=== PATIENT | male | born 1960 | race Caucasian/White ===

== ENCOUNTER 2016-12-29 16:28 | Inpatient (IN) | payer OTHER ==
[~2016-12-29] VITALS: Ht 180.3 cm; Wt 73.0 kg
[2016-12-29] MEDS ORDERED: PROPOFOL 1000 MG/100 ML INJ 100 ML ONE (16:38)
[2016-12-29 16:53] LABS: AUTOMATED NEUTROPHIL # 6.1 TH/MM3 (1.8-7.7); BASOPHIL % 0.2 % (0.0-2.0); EOSINOPHIL % 0.5 % (0.0-4.0); HEMATOCRIT 37.8 % (39.0-51.0); LYMPH % 28.9 % (9.0-44.0); LYMPHOCYTE # 2.8 TH/MM3 (1.0-4.8); MEAN CELL VOLUME 94.3 FL (80.0-100.0); MEAN CORPUSCULAR HEMOGLOBIN 31.3 PG (27.0-34.0); MEAN CORPUSCULAR HGB CONC 33.2 % (32.0-36.0); NEUT % 63.4 % (16.0-70.0); PLATELET COUNT 157 TH/MM3 (150-450); RED BLOOD COUNT 4.01 MIL/MM3 (4.50-5.90); WHITE BLOOD COUNT 9.6 TH/MM3 (4.0-11.0)
[2016-12-29 16:54] LABS: HEMO FLAGS AUTO DIFF
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
[2016-12-29 16:57] LABS: I-STAT POTASSIUM 3.6 MMOL/L (3.5-4.9)
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
[2016-12-29] MEDS ORDERED: NALOXONE HCL 0.4 MG/ML AMP IV PRN (17:00)
[2016-12-29] MEDS ORDERED: SODIUM CHLORIDE 0.9% FLUSH 10 ML FLUSH IV FLUSH PRN (17:00)
[2016-12-29] MEDS ORDERED: Post-op Orders (for Pharmacy) MISC XX ONE (17:00)
[2016-12-29] MEDS ORDERED: ONDANSETRON HCL 4 MG/2 ML VIAL IV PRN (17:00)
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
[2016-12-29 17:09] LABS: INTERNATIONAL NORMALIZED RATIO 1.1 RATIO; PROTHROMBIN TIME - PATIENT 11.8 SEC (9.8-11.6)
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
[2016-12-29 17:29] LABS: BANDS 5 % (0-6); METAMYELOCYTES 2 % (0-1); PLATELET ESTIMATE SMEAR NORMAL (NORMAL); PLATELET MORPHOLOGY NORMAL (NORMAL); POLYS (SEG NEUTROPHILS) 54 % (16-70); PROMYELOCYTES 1 % (0-0); SCAN/DIFF FINAL DIFF MANUAL; WBC DIFF SAMPLE 100
[2016-12-29] MEDS ORDERED: IOHEXOL 350 MG/ML 10 ML VIAL (for RAD DIAG) IV ONE ×2 (17:31→17:32)
[2016-12-29 17:38] VITALS: O2SAT 100
[2016-12-29 17:40] VITALS: O2SAT 100
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
[2016-12-29 18:00] VITALS: BP 103/59; PULSE 87; RESP 14; TEMP 95.7; O2SAT 100
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
[2016-12-29] MEDS: SODIUM CHLOR 0.9% 1000 ML INJ 1,000 ML IV SCH (18:34)
[2016-12-29] MEDS: PANTOPRAZOLE SODIUM 40 MG VIAL IV SCH (18:36)
[2016-12-29] MEDS: PROPOFOL 1000 MG/100 ML INJ 100 ML IV SCH ×2 (18:37→20:34)
[2016-12-29] MEDS: fentaNYL DRIP 250 ML IV SCH (18:55)
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
[2016-12-29 20:00] VITALS: BP 102/63; PULSE 90; RESP 14; TEMP 97.5; O2SAT 100
[2016-12-29] MEDS: CHLORHEXIDINE 0.12% (ORAL KIT) 15 ML CUP MT SCH (20:00)
[2016-12-29] MEDS: SODIUM CHLORIDE 0.9% FLUSH 10 ML FLUSH IV FLUSH SCH (21:00)
[2016-12-29 21:46] VITALS: O2SAT 95
[2016-12-29 22:00] VITALS: PULSE 90
[2016-12-30] VITALS (17 sets, daily range): BP systolic 88–131; BP diastolic 50–74; PULSE 86–101; RESP 14; TEMP 99–100; O2SAT 100
[2016-12-30] MEDS: SODIUM CHLOR 0.9% 1000 ML INJ 1,000 ML IV SCH ×3 (02:48→18:13)
[2016-12-30 04:08] LABS: AUTOMATED NEUTROPHIL # 8.9 TH/MM3 (1.8-7.7); BASOPHIL % 0.3 % (0.0-2.0); EOSINOPHIL % 0.2 % (0.0-4.0); HEMATOCRIT 36.4 % (39.0-51.0); HEMO FLAGS DIFF FINAL; LYMPH % 6.4 % (9.0-44.0); LYMPHOCYTE # 0.7 TH/MM3 (1.0-4.8); MEAN CELL VOLUME 93.5 FL (80.0-100.0); MEAN CORPUSCULAR HEMOGLOBIN 31.7 PG (27.0-34.0); MEAN CORPUSCULAR HGB CONC 33.9 % (32.0-36.0); MONO % 7.2 % (0.0-8.0); NEUT % 85.9 % (16.0-70.0); PLATELET COUNT 105 TH/MM3 (150-450); RED BLOOD COUNT 3.89 MIL/MM3 (4.50-5.90); RED CELL DISTRIBUTION WIDTH 13.3 % (11.6-17.2); WHITE BLOOD COUNT 10.3 TH/MM3 (4.0-11.0)
[2016-12-30 04:24] LABS: BICARBONATE 26.6 MEQ/L (21.0-32.0)
[2016-12-30 04:26] LABS: INDIRECT BILIRUBIN 0.4 MG/DL (0.0-0.8); TOTAL BILIRUBIN ADULT 0.5 MG/DL (0.2-1.0)
[2016-12-30] MEDS: CHLORHEXIDINE 0.12% (ORAL KIT) 15 ML CUP MT SCH ×2 (08:00→20:15)
[2016-12-30] MEDS: SODIUM CHLORIDE 0.9% FLUSH 10 ML FLUSH IV FLUSH SCH ×2 (09:00→20:15)
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
[2016-12-30] MEDS: ENOXAPARIN SODIUM 40 MG/0.4 ML SYRINGE SQ SCH (10:29)
[2016-12-30] MEDS: BACITRACIN TOP OINT 15 GM TUBE TOP SCH ×2 (10:29→20:15)
[2016-12-30] MEDS: fentaNYL DRIP 250 ML IV SCH (18:13)
[2016-12-30] MEDS: PANTOPRAZOLE SODIUM 40 MG VIAL IV SCH (18:13)
[2016-12-31] VITALS (16 sets, daily range): BP systolic 111–155; BP diastolic 59–90; PULSE 86–126; RESP 14–22; TEMP 98.5–99.9; O2SAT 94–100
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
[2016-12-31] MEDS: SODIUM CHLOR 0.9% 1000 ML INJ 1,000 ML IV SCH ×2 (05:21→16:50)
[2016-12-31] MEDS: SODIUM CHLORIDE 0.9% FLUSH 10 ML FLUSH IV FLUSH SCH ×2 (08:43→20:20)
[2016-12-31] MEDS: CHLORHEXIDINE 0.12% (ORAL KIT) 15 ML CUP MT SCH (08:43)
[2016-12-31] MEDS: BACITRACIN TOP OINT 15 GM TUBE TOP SCH ×2 (08:44→20:20)
[2016-12-31] MEDS: ENOXAPARIN SODIUM 40 MG/0.4 ML SYRINGE SQ SCH (10:00)
[2016-12-31] MEDS ORDERED: MORPHINE SULFATE 4 MG/ML INJ IV PUSH PRN (13:15)
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
--- NOTE | 2016-12-31 13:35 | PD.ORT.PN ---
Subjective Subjective Remarks Patient resting in bed with eyes open after being extubated this morning. Patient has appropriate verbal responses to questioning. Patient c/o mild pain to the left UE and right hip. Patient denies tingling or numbness, fevers, chills, nausea, SOB, or CP Objective Vitals Vital Signs Date Time Temp Pulse Resp B/P Pulse Ox O2 Delivery O2 Flow Rate FiO2 12/31/16 12:00 120 12/31/16 12:00 99.3 120 22 154/70 100 12/31/16 10:00 126 12/31/16 09:15 100 Nasal Cannula 2 12/31/16 09:00 30 12/31/16 08:00 98.5 108 20 155/88 100 12/31/16 08:00 108 12/31/16 08:00 30 12/31/16 07:00 100 Mechanical Ventilator 30 12/31/16 06:00 110 12/31/16 04:35 100 30 12/31/16 04:20 100 100 12/31/16 04:00 30 12/31/16 04:00 86 12/31/16 04:00 98.8 86 14 114/82 100 12/31/16 02:00 88 12/31/16 01:15 100 30 12/31/16 00:00 99.5 90 14 111/59 100 12/31/16 00:00 30 12/31/16 00:00 90 12/30/16 22:00 93 12/30/16 20:09 100 30 12/30/16 20:00 30 12/30/16 20:00 99.5 101 14 131/74 100 12/30/16 20:00 101 12/30/16 19:00 100 Mechanical Ventilator 30 12/30/16 16:00 92 12/30/16 16:00 99.3 92 104/65 100 12/30/16 16:00 30 12/30/16 15:39 100 30 12/30/16 14:00 86 I/O 12/30/16 12/30/16 12/30/16 12/31/16 12/31/16 12/31/16 07:00 15:00 23:00 07:00 15:00 23:00 Intake Total 0 ml 1053 ml 725 ml 993 ml Output Total 400 ml 400 ml 325 ml Balance 0 ml 653 ml 325 ml 668 ml Intake Oral 0 ml IV Total 1053 ml 725 ml 993 ml Output Urine Total 400 ml 325 ml 300 ml Gastric Drainage Total 0 ml 75 ml 25 ml # Bowel Movements 0 0 0 Result Diagram: 12/30/16 0348 12/30/16 0348 Imaging Last [address] 12/31/16 0000 Signed Impressions: Service Date/Time: Saturday, December 31, 2016 04:27 - CONCLUSION: 1. Suboptimal study. The upper images demonstrate severe motion artifact and these portions of the brain are not evaluated. 2. No visualized hemorrhage or mass effect. 3. Stable left frontal bone fracture. Siva Germain MD Objective Remarks Last [address] 12/31/16 0000 Signed Impressions: Service Date/Time: Saturday, December 31, 2016 04:27 - CONCLUSION: 1. Suboptimal study. The upper images demonstrate severe motion artifact and these portions of the brain are not evaluated. 2. No visualized hemorrhage or mass effect. 3. Stable left frontal bone fracture. Siva Germain MD Knee X-Ray 12/30/16 0000 Signed Impressions: Service Date/Time: Friday, December 30, 2016 08:53 - CONCLUSION: 1. Mild osteoarthritis. 2. There is a joint effusion. No fracture seen however an occult fracture cannot be excluded. Amrik Kaplan MD Humerus X-Ray 12/30/16 0000 Signed Impressions: Service Date/Time: Friday, December 30, 2016 08:43 - CONCLUSION: No acute fracture. Amrik Kaplan MD Thoracic Spine CT 12/29/16 1636 Signed Impressions: Service Date/Time: Thursday, December 29, 2016 17:06 - CONCLUSION: Mild degenerative changes throughout the thoracic spine. No acute fracture or subluxation. Juan Diego Pulido MD Maxillofacial CT 12/29/16 1636 Signed Impressions: Service Date/Time: Thursday, December 29, 2016 16:56 - CONCLUSION: Acute fractures involving the superior orbital regan bilaterally, left zygoma, and right anterior and lateral maxillary sinus regan. Orbital emphysema is noted bilaterally. There is also hemorrhage filling the right maxillary sinus. Small fluid levels are noted within the sphenoid and frontal sinuses bilaterally. Juan Diego Pulido MD Lumbar Spine CT 12/29/16 1636 Signed Impressions: Service Date/Time: Thursday, December 29, 2016 17:06 - CONCLUSION: 1. Bilateral sacral fractures extending from the superior to the inferior aspects of the sacrum. 2. No compression fracture, spondylolisthesis or spondylolysis of the lumbar spine. Juan Diego Pulido MD Head CT 12/29/161635 Signed Impressions: Service Date/Time: Thursday, December 29, 2016 16:56 - CONCLUSION: 1. No acute intracranial bleed. 2. Acute fractures involving the right maxillary sinus and left orbit which will be described in detail in the CT of the facial bones report done the same day. 3. Opacification of the right maxillary sinus with hemorrhage. Juan Diego Pulido MD Chest CT 12/29/161635 Signed Impressions: Service Date/Time: Thursday, December 29, 2016 17:06 - CONCLUSION: Posterior pleural/parenchymal patchiness is noted bilaterally (right slightly worse than left ) consistent with atelectasis, minimal infiltrates and/or contusions. Juan Diego Pulido MD Cervical Spine CT 12/29/161635 Signed Impressions: Service Date/Time: Thursday, December 29, 2016 16:56 - CONCLUSION: 1. No acute fracture or prevertebral soft-tissue swelling. 2. Diffuse cervical spondylosis and multilevel bilateral foraminal narrowing from C3 through T1. 3. Mild scoliosis of the cervical spine. 4. Patchiness within the right lung apex. Juan Diego Pulido MD Full physical exam performed now that patient is extubated to see if the patient has any new complaints. Patient moves bilateral ankles, knees, and hips with minimal pain. There is mild limitations with right hip secondary to discomfort with IR/ER. The patient does still have a moderate joint effusion to the left knee with mild tenderness to palpation. There are abrasions to the bilateral knees with no redness or s/s of infection. The patient has limited ROM of the left UE secondary to discomfort. Patient has good ROM of the bilateral hands, wrists, elbows, and right shoulder with no c/o pain. Patient able to make a fist with both hands. 2+ bilateral pedal and radial pulses. Patient has ecchymosis to the bilateral orbits. Assessment & Plan Assessment and Plan Right shoulder contusion without fracture Left shoulder dislocation with reduction Left midshaft fibula fracture Multiple pelvic fractures (bilateral sacrum, bilateral superior/inferior pubic rami, bilateral acetabulum) Left knee contusion with moderate joint effusion I took time to review the previously ordered imaging for the right humerus and left knee. I do not see any obvious fractures. The patient does have a moderate joint effusion to the left knee. I agree with the radiologist's impression. The patient was extubated earlier this morning and appears to answer questioning appropriate The patient should remain nonweightbearing with the LUE and should use his sling for support and comfort The patient will remain TTWB on the right LE secondary to his pelvic fractures. The patient can be WBAT on the LLE, however this may need to be limited secondary to his midshaft fibula fracture. The patient could require the use of a fracture boot if unable to tolerate WB on the LLE. This has not yet been determined We will continue with conservative management for current injuries Mike Feliciano December 31, 2016 13:34
[2016-12-31] MEDS: METHOCARBAMOL 500 MG TAB PO SCH ×2 (13:51→22:08)
[2016-12-31] MEDS: oxyCODONE/ACETAMINOPHEN 5 MG/325 MG TAB PO PRN (15:22)
[2017-01-01] VITALS (7 sets, daily range): BP systolic 119–163; BP diastolic 62–78; PULSE 96–106; RESP 17–20; TEMP 98.5–99.3; O2SAT 95–99
[2017-01-01] MEDS: SODIUM CHLOR 0.9% 1000 ML INJ 1,000 ML IV SCH ×2 (04:48→13:52)
[2017-01-01] MEDS: METHOCARBAMOL 500 MG TAB PO SCH ×3 (06:15→20:59)
[2017-01-01] MEDS ORDERED: LACTULOSE SYRUP 20 GM/30 ML CUP PO ONE (07:30)
[2017-01-01] MEDS: METOPROLOL TARTRATE 25 MG TAB PO SCH ×2 (08:59→21:00)
[2017-01-01] MEDS: BACITRACIN TOP OINT 15 GM TUBE TOP SCH ×2 (08:59→20:59)
[2017-01-01] MEDS: DOCUSATE SODIUM 50 MG/SENNA 8.6 MG TAB PO SCH ×2 (08:59→20:59)
[2017-01-01] MEDS: SODIUM CHLORIDE 0.9% FLUSH 10 ML FLUSH IV FLUSH SCH ×2 (08:59→21:00)
[2017-01-01 09:38] LABS: AUTOMATED NEUTROPHIL # 6.8 TH/MM3 (1.8-7.7); BASOPHIL % 0.1 % (0.0-2.0); EOSINOPHIL % 0.3 % (0.0-4.0); HEMATOCRIT 25.4 % (39.0-51.0); LYMPH % 6.3 % (9.0-44.0); LYMPHOCYTE # 0.5 TH/MM3 (1.0-4.8); MEAN CELL VOLUME 91.2 FL (80.0-100.0); MEAN CORPUSCULAR HEMOGLOBIN 31.8 PG (27.0-34.0); MEAN CORPUSCULAR HGB CONC 34.9 % (32.0-36.0); MONO % 7.2 % (0.0-8.0); NEUT % 86.1 % (16.0-70.0); PLATELET COUNT 61 TH/MM3 (150-450); RED BLOOD COUNT 2.78 MIL/MM3 (4.50-5.90); RED CELL DISTRIBUTION WIDTH 12.9 % (11.6-17.2); WHITE BLOOD COUNT 7.9 TH/MM3 (4.0-11.0)
[2017-01-01 09:39] LABS: HEMO FLAGS AUTO DIFF
[2017-01-01 09:49] LABS: ALKALINE PHOSPHATASE 70 U/L (45-117); ALT (GPT) 32 U/L (12-78); ANION GAP 5 MEQ/L (5-15); AST (GOT) 56 U/L (15-37); BICARBONATE 30.1 MEQ/L (21.0-32.0); BLOOD UREA NITROGEN 9 MG/DL (7-18); CHLORIDE 104 MEQ/L (98-107); GLOMERULAR FILTRATION RATE 111 ML/MIN (>89); POTASSIUM 3.9 MEQ/L (3.5-5.1); SODIUM (NA) 139 MEQ/L (136-145); TOTAL BILIRUBIN ADULT 0.7 MG/DL (0.2-1.0)
[2017-01-01] MEDS: ENOXAPARIN SODIUM 40 MG/0.4 ML SYRINGE SQ SCH (10:00)
[2017-01-01 10:05] LABS: PLATELET ESTIMATE SMEAR LOW (NORMAL)
[2017-01-01 10:06] LABS: PLATELET MORPHOLOGY NORMAL (NORMAL); SCAN/DIFF AUTO DIFF CONFIRMED
--- NOTE | 2017-01-01 12:33 | HHI.PR ---
Subjective Subjective Notes Still confused Unable to bear weight on BLE with PT Complains of left arm pain Objective Vitals/I&O Vital Signs Date Time Temp Pulse Resp B/P Pulse Ox O2 Delivery O2 Flow Rate FiO2 01/01/17 08:52 104 01/01/17 08:52 Room Air 01/01/17 08:00 99.1 18 119/62 99 12/31/16 20:24 2.00 12/31/16 09:00 30 Labs Laboratory Tests Test 01/01/17 08:41 White Blood Count 7.9 Red Blood Count 2.78 Hemoglobin 8.8 Hematocrit 25.4 Mean Corpuscular Volume 91.2 Mean Corpuscular Hemoglobin 31.8 Mean Corpuscular Hemoglobin 34.9 Concent Red Cell Distribution Width 12.9 Platelet Count 61 Mean Platelet Volume 8.0 Neutrophils (%) (Auto) 86.1 Lymphocytes (%) (Auto) 6.3 Monocytes (%) (Auto) 7.2 Eosinophils (%) (Auto) 0.3 Basophils (%) (Auto) 0.1 Neutrophils # (Auto) 6.8 Lymphocytes # (Auto) 0.5 Monocytes # (Auto) 0.6 Eosinophils # (Auto) 0.0 Basophils # (Auto) 0.0 CBC Comment AUTO DIFF Differential Comment AUTO DIFF CONFIRMED Platelet Estimate LOW Platelet Morphology Comment NORMAL Sodium Level 139 Potassium Level 3.9 Chloride Level 104 Carbon Dioxide Level 30.1 Anion Gap 5 Blood Urea Nitrogen 9 Creatinine 0.73 Estimat Glomerular Filtration 111 Rate Random Glucose 120 Calcium Level 8.2 Total Bilirubin 0.7 Aspartate Amino Transf 56 (AST/SGOT) Alanine Aminotransferase 32 (ALT/SGPT) Alkaline Phosphatase 70 Total Protein 5.5 Albumin 2.4 Radiology Last Impressions Head CT 12/31/16 0000 Signed Impressions: Service Date/Time: Saturday, December 31, 2016 04:27 - CONCLUSION: 1. Suboptimal study. The upper images demonstrate severe motion artifact and these portions of the brain are not evaluated. 2. No visualized hemorrhage or mass effect. 3. Stable left frontal bone fracture. Siva Germain MD Knee X-Ray 12/30/16 0000 Signed Impressions: Service Date/Time: Friday, December 30, 2016 08:53 - CONCLUSION: 1. Mild osteoarthritis. 2. There is a joint effusion. No fracture seen however an occult fracture cannot be excluded. Amrik Kaplan MD Humerus X-Ray 12/30/16 0000 Signed Impressions: Service Date/Time: Friday, December 30, 2016 08:43 - CONCLUSION: No acute fracture. Amrik Kaplan MD Thoracic Spine CT 12/29/16 1636 Signed Impressions: Service Date/Time: Thursday, December 29, 2016 17:06 - CONCLUSION: Mild degenerative changes throughout the thoracic spine. No acute fracture or subluxation. Juan Diego Pulido MD Maxillofacial CT 12/29/16 1636 Signed Impressions: Service Date/Time: Thursday, December 29, 2016 16:56 - CONCLUSION: Acute fractures involving the superior orbital regan bilaterally, left zygoma, and right anterior and lateral maxillary sinus regan. Orbital emphysema is noted bilaterally. There is also hemorrhage filling the right maxillary sinus. Small fluid levels are noted within the sphenoid and frontal sinuses bilaterally. Juan Diego Pulido MD Lumbar Spine CT 12/29/166 Signed Impressions: Service Date/Time: Thursday, December 29, 2016 17:06 - CONCLUSION: 1. Bilateral sacral fractures extending from the superior to the inferior aspects of the sacrum. 2. No compression fracture, spondylolisthesis or spondylolysis of the lumbar spine. Juan Diego Pulido MD Chest CT 12/29/16 1636 Signed Impressions: Service Date/Time: Thursday, December 29, 2016 17:06 - CONCLUSION: Posterior pleural/parenchymal patchiness is noted bilaterally (right slightly worse than left ) consistent with atelectasis, minimal infiltrates and/or contusions. Juan Diego Pulido MD Cervical Spine CT 12/29/16 1636 Signed Impressions: Service Date/Time: Thursday, December 29, 2016 16:56 - CONCLUSION: 1. No acute fracture or prevertebral soft-tissue swelling. 2. Diffuse cervical spondylosis and multilevel bilateral foraminal narrowing from C3 through T1. 3. Mild scoliosis of the cervical spine. 4. Patchiness within the right lung apex. Juan Diego Pulido MD Upper Extremity CT 12/29/16 0000 Signed Impressions: Service Date/Time: Thursday, December 29, 2016 17:06 - CONCLUSION: No acute disease. Juan Diego Pulido MD Tibia/Fibula X-Ray 12/29/16 0000 Signed Impressions: Service Date/Time: Thursday, December 29, 2016 16:22 - CONCLUSION: Acute nondisplaced fracture involving the left mid to distal fibular shaft. Juan Diego Pulido MD Shoulder X-Ray 12/29/16 0000 Signed Impressions: Service Date/Time: Thursday, December 29, 2016 16:22 - CONCLUSION: Successful closed reduction of left shoulder dislocation. No underlying fracture is noted. Juan Diego Pulido MD Lower Extremity CT 12/29/16 0000 Signed Impressions: Service Date/Time: Thursday, December 29, 2016 17:06 - CONCLUSION: Acute comminuted fracture involving the anterior column of the right acetabulum as well as acute fracture involving the junction of the right superior pubic ramus and acetabulum. Bilateral superior and inferior pubic rami fractures, left anterior column fracture and bilateral sacral fractures are also noted. Juan Diego Pulido MD Chest X-Ray 12/29/16 0000 Signed Impressions: Service Date/Time: Thursday, December 29, 2016 16:22 - CONCLUSION: 1. Endotracheal tube in good position 2 cm above the jeanie. 2. No acute focal pulmonary infiltrate or pulmonary vascular congestion. 3. No evidence of pneumothorax. 4. Apparent left shoulder dislocation. Clinical correlation is recommended. Juan Diego Pulido MD Ankle X-Ray 12/29/16 Signed Impressions: Service Date/Time: Thursday, December 29, 2016 18:26 - CONCLUSION: 1. No acute fracture or dislocation. 2. Tiny plantar calcaneal spur. Juan Diego Pulido MD Abdomen/Pelvis CT 12/29/16 0000 Signed Impressions: Service Date/Time: Thursday, December 29, 2016 00:00 - CONCLUSION: 1. Acute fractures involving the bilateral sacrum and bilateral inferior pubic rami. Acute fractures involving the junction of the bilateral anterior columns and superior pubic rami are also noted. The fracture of the right acetabulum is comminuted. 2. No acute visceral trauma identified on this somewhat limited noncontrast examination. Juan Diego Pulido MD Narrative Exam GENERAL: 56-year-old well-nourished, well developed male lying in bed. SKIN: Warm and dry. HEAD: Normocephalic. BILATERAL orbit ecchymosis. ENT: No nasal bleeding or discharge. Mucous membranes pink and moist. NECK: Trachea midline. No JVD. CARDIOVASCULAR: Regular rate and rhythm. RESPIRATORY: No accessory muscle use. Lungs clear to auscultation. Breath sounds equal bilaterally. GASTROINTESTINAL: Abdomen soft, non-tender, nondistended. + BS. MUSCULOSKELETAL: Extremities without cyanosis, or edema. LEFT arm in sling. MAEW. + pulses x4. NEUROLOGICAL: Awake and alert. Normal speech. A/P Assessment and Plan INJURIES: LEFT fibula fx(non-op) LEFT shoulder dislocation BILAT orbital fx LEFT zygoma fx RIGHT anterior and lateral maxillary sinus fx w/ bleed Concussion Pelvic fxs (BILAT scarum, BILAT pubic rami, RIGHT acetabulum-communited) 12/29- closed reduction LEFT shoulder 12/31: Extubated Diet: Regular, ST for cognitive eval Pulmonary: IS Pain: Percocet, Morphine Activity: OOB. PT, OT ordered. Bowel: Lilo-colace 2 tabs. Lactulose x1 No BM yet DVT: SCDs LEFT fibula fx Orthopedics following Nonoperative management Fracture boot if unable to bear weight on left leg PT/OT LEFT shoulder dislocation Reduced in emergency department Orthopedics following Nonoperative management Sling to left arm NWB Occupational therapy BILAT orbital fx, LEFT zygoma fx, RIGHT anterior and lateral maxillary sinus fx w/ bleed OMFS consulted awaiting evaluation Ancef 1 gram x2 days prophylactic for maxillary sinus fracture Concussion Neuro checks Cognitive evaluation by speech therapy Supportive care Pelvic fxs (BILAT scarum, BILAT pubic rami, RIGHT acetabulum-communited) Orthopedics following Nonoperative management WBAT LLE, TTWB RLE Physical therapy Thrombocytopenia PLT 61 Hgb 8.8 Heme consulted Hold Lovenox Case management consulted for discharge planning. Patient reports he is uninsured. Plan of care discussed with patient and OT at bedside. Aury Vuong January 01, 2017 12:33
--- NOTE | 2017-01-01 16:40 | PD.ORT.PN ---
Subjective Subjective Remarks somewhat confused Objective Vitals Vital Signs Date Time Temp Pulse Resp B/P Pulse Ox O2 Delivery O2 Flow Rate FiO2 01/01/17 12:00 99.3 102 20 129/75 96 01/01/17 08:52 104 01/01/17 08:52 Room Air 01/01/17 08:00 99.1 104 18 119/62 99 01/01/17 04:00 98.9 104 17 163/71 99 12/31/16 21:25 99.4 114 16 138/73 94 12/31/16 20:24 Nasal Cannula 2.00 12/31/16 20:00 98.6 118 22 128/60 100 12/31/16 20:00 119 12/31/16 19:00 100 Nasal Cannula 2.00 12/31/16 18:00 114 12/31/16 17:33 20 I/O 12/31/16 12/31/16 12/31/16 01/01/17 01/01/17 01/01/17 07:00 15:00 23:00 07:00 15:00 23:00 Intake Total 993 ml 714 ml 558 ml 1251 ml Output Total 325 ml 550 ml 650 ml 1500 ml Balance 668 ml 164 ml -92 ml -249 ml Intake Oral 480 ml IV Total 993 ml 714 ml 558 ml 771 ml Output Urine Total 300 ml 550 ml 650 ml 1500 ml Gastric Drainage Total 25 ml # Bowel Movements 0 0 0 Result Diagram: 01/01/17 0841 01/01/17 0841 Imaging Last [address] 12/31/16 0000 Signed Impressions: Service Date/Time: Saturday, December 31, 2016 04:27 - CONCLUSION: 1. Suboptimal study. The upper images demonstrate severe motion artifact and these portions of the brain are not evaluated. 2. No visualized hemorrhage or mass effect. 3. Stable left frontal bone fracture. Siva Germain MD Objective Remarks Last [address] 12/31/16 0000 Signed Impressions: Service Date/Time: Saturday, December 31, 2016 04:27 - CONCLUSION: 1. Suboptimal study. The upper images demonstrate severe motion artifact and these portions of the brain are not evaluated. 2. No visualized hemorrhage or mass effect. 3. Stable left frontal bone fracture. Siva Germain MD Knee X-Ray 12/30/16 0000 Signed Impressions: Service Date/Time: Friday, December 30, 2016 08:53 - CONCLUSION: 1. Mild osteoarthritis. 2. There is a joint effusion. No fracture seen however an occult fracture cannot be excluded. Amrik Kaplan MD Humerus X-Ray 12/30/16 0000 Signed Impressions: Service Date/Time: Friday, December 30, 2016 08:43 - CONCLUSION: No acute fracture. Amrik Kaplan MD Thoracic Spine CT 12/29/16 1636 Signed Impressions: Service Date/Time: Thursday, December 29, 2016 17:06 - CONCLUSION: Mild degenerative changes throughout the thoracic spine. No acute fracture or subluxation. Juan Diego Pulido MD Maxillofacial CT 12/29/161635 Signed Impressions: Service Date/Time: Thursday, December 29, 2016 16:56 - CONCLUSION: Acute fractures involving the superior orbital regan bilaterally, left zygoma, and right anterior and lateral maxillary sinus regan. Orbital emphysema is noted bilaterally. There is also hemorrhage filling the right maxillary sinus. Small fluid levels are noted within the sphenoid and frontal sinuses bilaterally. Juan Diego Pulido MD Lumbar Spine CT 12/29/16 1636 Signed Impressions: Service Date/Time: Thursday, December 29, 2016 17:06 - CONCLUSION: 1. Bilateral sacral fractures extending from the superior to the inferior aspects of the sacrum. 2. No compression fracture, spondylolisthesis or spondylolysis of the lumbar spine. Juan Diego Pulido MD Head CT 12/29/166 Signed Impressions: Service Date/Time: Thursday, December 29, 2016 16:56 - CONCLUSION: 1. No acute intracranial bleed. 2. Acute fractures involving the right maxillary sinus and left orbit which will be described in detail in the CT of the facial bones report done the same day. 3. Opacification of the right maxillary sinus with hemorrhage. Juan Diego Pulido MD Chest CT 12/29/16 1636 Signed Impressions: Service Date/Time: Thursday, December 29, 2016 17:06 - CONCLUSION: Posterior pleural/parenchymal patchiness is noted bilaterally (right slightly worse than left ) consistent with atelectasis, minimal infiltrates and/or contusions. Juan Diego Pulido MD Cervical Spine CT 12/29/166 Signed Impressions: Service Date/Time: Thursday, December 29, 2016 16:56 - CONCLUSION: 1. No acute fracture or prevertebral soft-tissue swelling. 2. Diffuse cervical spondylosis and multilevel bilateral foraminal narrowing from C3 through T1. 3. Mild scoliosis of the cervical spine. 4. Patchiness within the right lung apex. Juan Diego Pulido MD mild limitations with right hip secondary to discomfort with IR/ER. The patient does still have a moderate joint effusion to the left knee with mild tenderness to palpation. There are abrasions to the bilateral knees with no redness or s/s of infection. Limited ROM shoulder. Patient has ecchymosis to the bilateral orbits. Mild tenderness to L mid lateral leg with min swelling Assessment & Plan Assessment and Plan Right shoulder contusion without fracture Left shoulder dislocation with reduction Left midshaft fibula fracture Multiple pelvic fractures (bilateral sacrum, bilateral superior/inferior pubic rami, bilateral acetabulum) Left knee contusion with moderate joint effusion The patient should remain nonweightbearing with the LUE and should use his sling for support and comfort The patient will remain TTWB on the right LE secondary to his pelvic fractures. The patient can be WBAT on the LLE, however this may need to be limited secondary to his midshaft fibula fracture. The patient could require the use of a fracture boot if unable to tolerate WB on the LLE. This has not yet been determined. Please call me if need order for fx boot when patient attempts ambulation We will continue with conservative management for current injuries Will sign off for now. Alfred Alexander MD January 01, 2017 16:40
[2017-01-02] VITALS (7 sets, daily range): BP systolic 120–137; BP diastolic 68–77; PULSE 88–98; RESP 18–22; TEMP 97.7–99; O2SAT 96–99
[2017-01-02] MEDS: METHOCARBAMOL 500 MG TAB PO SCH ×3 (05:49→22:21)
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
[2017-01-02 07:36] LABS: AUTOMATED NEUTROPHIL # 5.4 TH/MM3 (1.8-7.7); BASOPHIL % 0.4 % (0.0-2.0); EOSINOPHIL % 0.5 % (0.0-4.0); HEMATOCRIT 26.4 % (39.0-51.0); LYMPH % 10.2 % (9.0-44.0); LYMPHOCYTE # 0.7 TH/MM3 (1.0-4.8); MEAN CELL VOLUME 92.1 FL (80.0-100.0); MEAN CORPUSCULAR HEMOGLOBIN 31.6 PG (27.0-34.0); MEAN CORPUSCULAR HGB CONC 34.4 % (32.0-36.0); NEUT % 79.9 % (16.0-70.0); PLATELET COUNT 80 TH/MM3 (150-450); RED BLOOD COUNT 2.87 MIL/MM3 (4.50-5.90); RED CELL DISTRIBUTION WIDTH 12.8 % (11.6-17.2); WHITE BLOOD COUNT 6.7 TH/MM3 (4.0-11.0)
[2017-01-02 07:38] LABS: HEMO FLAGS AUTO DIFF
[2017-01-02 07:53] LABS: PROTHROMBIN TIME - PATIENT 10.8 SEC (9.8-11.6)
[2017-01-02 08:10] LABS: BICARBONATE 28.6 MEQ/L (21.0-32.0); POTASSIUM 3.5 MEQ/L (3.5-5.1)
[2017-01-02 08:11] LABS: LDH SERUM 308 U/L (87-241); TRANSFERRIN IRON PROFILE 143 MG/DL (200-360)
[2017-01-02 08:36] LABS: INDIRECT BILIRUBIN 0.6 MG/DL (0.0-0.8); TOTAL BILIRUBIN ADULT 0.8 MG/DL (0.2-1.0)
[2017-01-02 08:39] LABS: PLATELET ESTIMATE SMEAR LOW (NORMAL); PLATELET MORPHOLOGY NORMAL (NORMAL); SCAN/DIFF AUTO DIFF CONFIRMED
[2017-01-02] MEDS: SODIUM CHLORIDE 0.9% FLUSH 10 ML FLUSH IV FLUSH SCH ×2 (09:08→20:41)
[2017-01-02] MEDS: METOPROLOL TARTRATE 25 MG TAB PO SCH ×2 (09:08→20:39)
[2017-01-02] MEDS: DOCUSATE SODIUM 50 MG/SENNA 8.6 MG TAB PO SCH ×2 (09:09→20:38)
[2017-01-02] MEDS: BACITRACIN TOP OINT 15 GM TUBE TOP SCH ×2 (09:09→20:40)
[2017-01-02 13:40] LABS: HEPARIN AB OD 0.063 O.D. (0.000-0.300); HEPARIN INDUCED PLATELET AB NEGATIVE (NEGATIVE)
--- NOTE | 2017-01-02 21:10 | HHI.PR ---
Subjective Subjective Notes Eating well Complains of left arm pain Objective Vitals/I&O Vital Signs Date Time Temp Pulse Resp B/P Pulse Ox O2 Delivery O2 Flow Rate FiO2 01/02/17 15:50 98.5 90 18 137/70 99 01/01/17 19:20 Nasal Cannula 2.00 01/01/17 12:45 21 Labs Laboratory Tests Test 01/02/17 07:14 White Blood Count 6.7 Red Blood Count 2.87 Hemoglobin 9.1 Hematocrit 26.4 Mean Corpuscular Volume 92.1 Mean Corpuscular Hemoglobin 31.6 Mean Corpuscular Hemoglobin 34.4 Concent Red Cell Distribution Width 12.8 Platelet Count 80 Mean Platelet Volume 8.0 Neutrophils (%) (Auto) 79.9 Lymphocytes (%) (Auto) 10.2 Monocytes (%) (Auto) 9.0 Eosinophils (%) (Auto) 0.5 Basophils (%) (Auto) 0.4 Neutrophils # (Auto) 5.4 Lymphocytes # (Auto) 0.7 Monocytes # (Auto) 0.6 Eosinophils # (Auto) 0.0 Basophils # (Auto) 0.0 CBC Comment AUTO DIFF Differential Comment AUTO DIFF CONFIRMED Platelet Estimate LOW Platelet Morphology Comment NORMAL Blood Smear Pathologist Review Haptoglobin 178 Prothrombin Time 10.8 Prothromb Time International 1.0 Ratio Fibrinogen 500 Sodium Level 140 Potassium Level 3.5 Chloride Level 107 Carbon Dioxide Level 28.6 Anion Gap 4 Blood Urea Nitrogen 13 Creatinine 0.68 Estimat Glomerular Filtration 121 Rate Random Glucose 110 Calcium Level 8.4 Iron Level 43 Total Iron Binding Capacity 200 Percent Iron Saturation 21.5 Transferrin 143 Total Bilirubin 0.8 Direct Bilirubin 0.2 Indirect Bilirubin 0.6 Lactate Dehydrogenase 308 Vitamin B12 Level 466 Heparin-Induced Platelet Ab NEGATIVE ([place]) HIPA Patient Optical Density 0.063 Hepatitis B Surface Antigen NEGATIVE Hepatitis B Core IgM Antibody NEGATIVE Hepatitis C Antibody NEGATIVE HIV (1&2) Antibody NEGATIVE Blood Type O NEGATIVE Direct Antiglobulin Test NEGATIVE (Jimmy) Radiology Last Impressions Head CT 12/31/16 0000 Signed Impressions: Service Date/Time: Saturday, December 31, 2016 04:27 - CONCLUSION: 1. Suboptimal study. The upper images demonstrate severe motion artifact and these portions of the brain are not evaluated. 2. No visualized hemorrhage or mass effect. 3. Stable left frontal bone fracture. Siva Germain MD Knee X-Ray 12/30/16 0000 Signed Impressions: Service Date/Time: Friday, December 30, 2016 08:53 - CONCLUSION: 1. Mild osteoarthritis. 2. There is a joint effusion. No fracture seen however an occult fracture cannot be excluded. Amrik Kaplan MD Humerus X-Ray 12/30/16 0000 Signed Impressions: Service Date/Time: Friday, December 30, 2016 08:43 - CONCLUSION: No acute fracture. Amrik Kaplan MD Thoracic Spine CT 12/29/16 1636 Signed Impressions: Service Date/Time: Thursday, December 29, 2016 17:06 - CONCLUSION: Mild degenerative changes throughout the thoracic spine. No acute fracture or subluxation. Juan Diego Pulido MD Maxillofacial CT 12/29/166 Signed Impressions: Service Date/Time: Thursday, December 29, 2016 16:56 - CONCLUSION: Acute fractures involving the superior orbital regan bilaterally, left zygoma, and right anterior and lateral maxillary sinus regan. Orbital emphysema is noted bilaterally. There is also hemorrhage filling the right maxillary sinus. Small fluid levels are noted within the sphenoid and frontal sinuses bilaterally. Juan Diego Pulido MD Lumbar Spine CT 12/29/16 1636 Signed Impressions: Service Date/Time: Thursday, December 29, 2016 17:06 - CONCLUSION: 1. Bilateral sacral fractures extending from the superior to the inferior aspects of the sacrum. 2. No compression fracture, spondylolisthesis or spondylolysis of the lumbar spine. Juan Diego Pulido MD Chest CT 12/29/16 1636 Signed Impressions: Service Date/Time: Thursday, December 29, 2016 17:06 - CONCLUSION: Posterior pleural/parenchymal patchiness is noted bilaterally (right slightly worse than left ) consistent with atelectasis, minimal infiltrates and/or contusions. Juan Diego Pulido MD Cervical Spine CT 12/29/16 1636 Signed Impressions: Service Date/Time: Thursday, December 29, 2016 16:56 - CONCLUSION: 1. No acute fracture or prevertebral soft-tissue swelling. 2. Diffuse cervical spondylosis and multilevel bilateral foraminal narrowing from C3 through T1. 3. Mild scoliosis of the cervical spine. 4. Patchiness within the right lung apex. Juan Diego Pulido MD Upper Extremity CT 12/29/16 0000 Signed Impressions: Service Date/Time: Thursday, December 29, 2016 17:06 - CONCLUSION: No acute disease. Juan Diego Pulido MD Tibia/Fibula X-Ray 12/29/16 Signed Impressions: Service Date/Time: Thursday, December 29, 2016 16:22 - CONCLUSION: Acute nondisplaced fracture involving the left mid to distal fibular shaft. Juan Diego Pulido MD Shoulder X-Ray 12/29/16 Signed Impressions: Service Date/Time: Thursday, December 29, 2016 16:22 - CONCLUSION: Successful closed reduction of left shoulder dislocation. No underlying fracture is noted. Juan Diego Pulido MD Lower Extremity CT 12/29/16 Signed Impressions: Service Date/Time: Thursday, December 29, 2016 17:06 - CONCLUSION: Acute comminuted fracture involving the anterior column of the right acetabulum as well as acute fracture involving the junction of the right superior pubic ramus and acetabulum. Bilateral superior and inferior pubic rami fractures, left anterior column fracture and bilateral sacral fractures are also noted. Juan Diego Pulido MD Chest X-Ray 12/29/16 Signed Impressions: Service Date/Time: Thursday, December 29, 2016 16:22 - CONCLUSION: 1. Endotracheal tube in good position 2 cm above the jeanie. 2. No acute focal pulmonary infiltrate or pulmonary vascular congestion. 3. No evidence of pneumothorax. 4. Apparent left shoulder dislocation. Clinical correlation is recommended. Juan Diego Pulido MD Ankle X-Ray 12/29/16 Signed Impressions: Service Date/Time: Thursday, December 29, 2016 18:26 - CONCLUSION: 1. No acute fracture or dislocation. 2. Tiny plantar calcaneal spur. Juan Diego Pulido MD Abdomen/Pelvis CT 12/29/16 Signed Impressions: Service Date/Time: Thursday, December 29, 2016 00:00 - CONCLUSION: 1. Acute fractures involving the bilateral sacrum and bilateral inferior pubic rami. Acute fractures involving the junction of the bilateral anterior columns and superior pubic rami are also noted. The fracture of the right acetabulum is comminuted. 2. No acute visceral trauma identified on this somewhat limited noncontrast examination. Juan Diego Pulido MD Narrative Exam GENERAL: 56-year-old well-nourished, well developed male lying in bed. SKIN: Warm and dry. HEAD: Normocephalic. BILATERAL orbit ecchymosis. ENT: No nasal bleeding or discharge. Mucous membranes pink and moist. NECK: Trachea midline. No JVD. CARDIOVASCULAR: Regular rate and rhythm. RESPIRATORY: No accessory muscle use. Lungs clear to auscultation. Breath sounds equal bilaterally. GASTROINTESTINAL: Abdomen soft, non-tender, nondistended. + BS. MUSCULOSKELETAL: Extremities without cyanosis, or edema. LEFT arm in sling. MAEW. + pulses x4. NEUROLOGICAL: Awake and alert. Normal speech. A/P Assessment and Plan INJURIES: LEFT fibula fx(non-op) LEFT shoulder dislocation BILAT orbital fx LEFT zygoma fx RIGHT anterior and lateral maxillary sinus fx w/ bleed Concussion Pelvic fxs (BILAT scarum, BILAT pubic rami, RIGHT acetabulum-communited) 12/29- closed reduction LEFT shoulder 12/31: Extubated Diet: Regular, ST for cognitive eval Pulmonary: IS Pain: Percocet, Morphine Activity: OOB. PT, OT ordered. Bowel: Lilo-colace 2 tabs. Lactulose x1 No BM yet DVT: SCDs LEFT fibula fx Orthopedics following Nonoperative management Fracture boot if unable to bear weight on left leg PT/OT LEFT shoulder dislocation Reduced in emergency department Orthopedics following Nonoperative management Sling to left arm NWB Occupational therapy BILAT orbital fx, LEFT zygoma fx, RIGHT anterior and lateral maxillary sinus fx w/ bleed OMFS consulted- patient to F/U as outpatient per Dr Liu Ancef 1 gram x2 days prophylactic for maxillary sinus fracture- complete Concussion Neuro checks Cognitive evaluation by speech therapy Supportive care Pelvic fxs (BILAT scarum, BILAT pubic rami, RIGHT acetabulum-communited) Orthopedics following Nonoperative management WBAT LLE, TTWB RLE Physical therapy increased to 7 days/week Thrombocytopenia PLT 80 Hgb 9.1 Heme consulted- Ruling out DIC Hold Lovenox Case management consulted for discharge planning. Patient has no payer source for rehab. [facility] following. Plan of care discussed with patient and family at bedside. The exam, history, and the medical decision-making described in the above note were completed with the assistance of the mid-level provider. I reviewed and agree with the findings presented. I attest that I had a [id number] encounter with the patient on the same day, and personally performed and documented my assessment and findings in the medical record. Aury Vuong January 02, 2017 21:10 Toño Medrano MD January 14, 2017 19:51
[2017-01-02] MEDS: MAGNESIUM HYDROXIDE SUSP 30 ML CUP PO SCH (22:21)
[2017-01-02] MEDS: FAMOTIDINE 20 MG TAB PO SCH (22:21)
[2017-01-03] VITALS (7 sets, daily range): BP systolic 107–138; BP diastolic 68–83; PULSE 82–99; RESP 16–18; TEMP 97–99; O2SAT 98–100
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
[2017-01-03] MEDS: METHOCARBAMOL 500 MG TAB PO SCH ×3 (06:09→21:09)
[2017-01-03] MEDS: DOCUSATE SODIUM 50 MG/SENNA 8.6 MG TAB PO SCH ×2 (07:54→21:00)
[2017-01-03] MEDS: BACITRACIN TOP OINT 15 GM TUBE TOP SCH ×2 (07:55→21:12)
[2017-01-03] MEDS: IRON SUCROSE INJ 200 MG in SODIUM CHLORIDE 0.9% INJ 100 ML IV SCH (07:56)
[2017-01-03] MEDS: METOPROLOL TARTRATE 25 MG TAB PO SCH ×2 (08:00→21:09)
[2017-01-03] MEDS: SODIUM CHLORIDE 0.9% FLUSH 10 ML FLUSH IV FLUSH SCH ×2 (09:00→21:00)
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
[2017-01-03] MEDS: MAGNESIUM HYDROXIDE SUSP 30 ML CUP PO SCH (21:00)
[2017-01-03] MEDS: FAMOTIDINE 20 MG TAB PO SCH (21:09)
[2017-01-03] MEDS: oxyCODONE/ACETAMINOPHEN 5 MG/325 MG TAB PO PRN (23:23)
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
[2017-01-04] MEDS ORDERED: MORPHINE SULFATE 4 MG/ML INJ IV PUSH PRN
[2017-01-04] MEDS: oxyCODONE/ACETAMINOPHEN 5 MG/325 MG TAB PO PRN ×4 (03:06→20:28)
[2017-01-04 04:00] VITALS: BP 119/74; PULSE 76; RESP 16; TEMP 98; O2SAT 97
[2017-01-04] MEDS: METHOCARBAMOL 500 MG TAB PO SCH ×3 (07:21→20:30)
[2017-01-04 08:00] VITALS: BP 122/74; PULSE 89; RESP 19; TEMP 98.2; O2SAT 100
[2017-01-04] MEDS: METOPROLOL TARTRATE 25 MG TAB PO SCH ×2 (08:57→20:29)
[2017-01-04] MEDS: DOCUSATE SODIUM 50 MG/SENNA 8.6 MG TAB PO SCH ×2 (08:57→20:28)
[2017-01-04] MEDS: SODIUM CHLORIDE 0.9% FLUSH 10 ML FLUSH IV FLUSH SCH ×2 (08:57→20:29)
[2017-01-04] MEDS: IRON SUCROSE INJ 200 MG in SODIUM CHLORIDE 0.9% INJ 100 ML IV SCH (10:14)
[2017-01-04] MEDS: BACITRACIN TOP OINT 15 GM TUBE TOP SCH ×2 (10:16→20:30)
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
[2017-01-04 12:00] VITALS: BP 134/80; PULSE 89; RESP 18; TEMP 98.9; O2SAT 97
[2017-01-04 16:00] VITALS: BP 139/79; PULSE 90; RESP 18; TEMP 98.8; O2SAT 95
[2017-01-04] MEDS ORDERED: ACETAMINOPHEN 325 MG TAB PO PRN (16:15)
[2017-01-04 20:00] VITALS: BP 133/78; PULSE 94; RESP 16; TEMP 98.4; O2SAT 97
[2017-01-04] MEDS: FAMOTIDINE 20 MG TAB PO SCH (20:28)
[2017-01-04] MEDS: MAGNESIUM HYDROXIDE SUSP 30 ML CUP PO SCH (20:28)
[2017-01-05] VITALS: BP 122/73; PULSE 79; RESP 16; TEMP 98.7; O2SAT 98
[2017-01-05 04:00] VITALS: BP 116/66; PULSE 69; RESP 16; TEMP 98.6; O2SAT 98
[2017-01-05] MEDS: METHOCARBAMOL 500 MG TAB PO SCH ×3 (05:34→21:13)
[2017-01-05] MEDS: oxyCODONE/ACETAMINOPHEN 5 MG/325 MG TAB PO PRN ×4 (05:35→23:12)
[2017-01-05 08:00] VITALS: BP 130/77; PULSE 81; RESP 20; TEMP 98.1; O2SAT 97
[2017-01-05] MEDS: SODIUM CHLORIDE 0.9% FLUSH 10 ML FLUSH IV FLUSH SCH ×2 (08:47→21:15)
[2017-01-05] MEDS: DOCUSATE SODIUM 50 MG/SENNA 8.6 MG TAB PO SCH ×2 (08:47→21:00)
[2017-01-05] MEDS: METOPROLOL TARTRATE 25 MG TAB PO SCH ×2 (08:47→21:13)
[2017-01-05] MEDS: BACITRACIN TOP OINT 15 GM TUBE TOP SCH ×2 (08:48→21:00)
[2017-01-05] MEDS: IRON SUCROSE INJ 200 MG in SODIUM CHLORIDE 0.9% INJ 100 ML IV SCH (10:56)
[2017-01-05 12:00] VITALS: BP 142/77; PULSE 81; RESP 20; TEMP 97.6; O2SAT 98
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
[2017-01-05 16:00] VITALS: BP 132/75; PULSE 101; RESP 18; TEMP 98.9; O2SAT 97
[2017-01-05 20:54] VITALS: BP 139/74; PULSE 97; RESP 18; TEMP 99.2; O2SAT 97
[2017-01-05] MEDS: MAGNESIUM HYDROXIDE SUSP 30 ML CUP PO SCH (21:00)
[2017-01-05] MEDS: FAMOTIDINE 20 MG TAB PO SCH (21:14)
[2017-01-06 00:05] VITALS: BP 117/71; PULSE 89; RESP 20; TEMP 99.3; O2SAT 96
[2017-01-06] MEDS: METHOCARBAMOL 500 MG TAB PO SCH ×3 (05:27→21:23)
[2017-01-06] MEDS: oxyCODONE/ACETAMINOPHEN 5 MG/325 MG TAB PO PRN ×3 (05:27→21:24)
[2017-01-06 08:00] VITALS: BP 126/81; PULSE 90; RESP 18; TEMP 97.8; O2SAT 96
[2017-01-06] MEDS: METOPROLOL TARTRATE 25 MG TAB PO SCH ×2 (08:37→21:23)
[2017-01-06] MEDS: DOCUSATE SODIUM 50 MG/SENNA 8.6 MG TAB PO SCH ×2 (08:37→21:00)
[2017-01-06] MEDS: SODIUM CHLORIDE 0.9% FLUSH 10 ML FLUSH IV FLUSH SCH ×2 (08:38→21:00)
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
[2017-01-06] MEDS: BACITRACIN TOP OINT 15 GM TUBE TOP SCH ×2 (12:34→21:00)
[2017-01-06 20:00] VITALS: BP 141/79; PULSE 98; RESP 20; TEMP 99.1; O2SAT 98
[2017-01-06] MEDS: MAGNESIUM HYDROXIDE SUSP 30 ML CUP PO SCH (21:00)
[2017-01-06] MEDS: FAMOTIDINE 20 MG TAB PO SCH (21:23)
[2017-01-07] VITALS: BP 124/70; PULSE 85; RESP 16; TEMP 97.7; O2SAT 98
[2017-01-07 04:00] VITALS: BP 136/76; PULSE 87; RESP 16; TEMP 98; O2SAT 98
[2017-01-07 05:49] LABS: MEAN CELL VOLUME 94.9 FL (80.0-100.0); MEAN CORPUSCULAR HEMOGLOBIN 32.1 PG (27.0-34.0); MEAN CORPUSCULAR HGB CONC 33.8 % (32.0-36.0); PLATELET COUNT 221 TH/MM3 (150-450); RED BLOOD COUNT 3.26 MIL/MM3 (4.50-5.90); RED CELL DISTRIBUTION WIDTH 13.1 % (11.6-17.2); REVIEW FLAG FINAL; WHITE BLOOD COUNT 7.3 TH/MM3 (4.0-11.0)
[2017-01-07] MEDS: METHOCARBAMOL 500 MG TAB PO SCH ×3 (06:13→21:41)
[2017-01-07 08:00] VITALS: BP 140/61; PULSE 84; RESP 20; TEMP 97.4; O2SAT 97
[2017-01-07] MEDS: DOCUSATE SODIUM 50 MG/SENNA 8.6 MG TAB PO SCH ×2 (09:20→21:00)
[2017-01-07] MEDS: METOPROLOL TARTRATE 25 MG TAB PO SCH ×2 (09:20→21:41)
[2017-01-07] MEDS: BACITRACIN TOP OINT 15 GM TUBE TOP SCH ×2 (09:21→21:46)
[2017-01-07] MEDS: oxyCODONE/ACETAMINOPHEN 5 MG/325 MG TAB PO PRN ×3 (09:21→21:42)
[2017-01-07] MEDS: SODIUM CHLORIDE 0.9% FLUSH 10 ML FLUSH IV FLUSH SCH ×2 (09:22→21:42)
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
[2017-01-07] MEDS: ENOXAPARIN SODIUM 40 MG/0.4 ML SYRINGE SQ SCH (13:38)
[2017-01-07 20:00] VITALS: BP 140/82; PULSE 90; RESP 19; TEMP 98.6; O2SAT 98
[2017-01-07] MEDS: MAGNESIUM HYDROXIDE SUSP 30 ML CUP PO SCH (21:00)
[2017-01-07] MEDS: FAMOTIDINE 20 MG TAB PO SCH (21:41)
[2017-01-08] MEDS: oxyCODONE/ACETAMINOPHEN 5 MG/325 MG TAB PO PRN ×2 (04:17→10:20)
[2017-01-08] MEDS: METHOCARBAMOL 500 MG TAB PO SCH ×3 (06:33→22:07)
[2017-01-08 08:00] VITALS: BP 118/79; PULSE 84; RESP 20; TEMP 97.5; O2SAT 98
[2017-01-08] MEDS: BACITRACIN TOP OINT 15 GM TUBE TOP SCH ×2 (09:00→20:44)
[2017-01-08] MEDS: DOCUSATE SODIUM 50 MG/SENNA 8.6 MG TAB PO SCH (09:00)
[2017-01-08] MEDS: METOPROLOL TARTRATE 25 MG TAB PO SCH ×2 (10:15→20:43)
[2017-01-08] MEDS: ENOXAPARIN SODIUM 40 MG/0.4 ML SYRINGE SQ SCH (10:15)
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
[2017-01-08] MEDS ORDERED: ONDANSETRON ODT 4 MG TAB PO PRN (11:15)
[2017-01-08] MEDS ORDERED: MAGNESIUM HYDROXIDE SUSP 30 ML CUP PO PRN (11:15)
[2017-01-08 20:00] VITALS: BP 120/79; PULSE 102; RESP 18; TEMP 96.3; O2SAT 98
[2017-01-08] MEDS: FAMOTIDINE 20 MG TAB PO SCH (20:43)
[2017-01-09] MEDS: METHOCARBAMOL 500 MG TAB PO SCH ×3 (05:27→21:19)
[2017-01-09 08:57] VITALS: BP 151/79; PULSE 86; RESP 18; TEMP 98.2; O2SAT 97
[2017-01-09] MEDS: METOPROLOL TARTRATE 25 MG TAB PO SCH ×2 (09:15→21:04)
[2017-01-09] MEDS: BACITRACIN TOP OINT 15 GM TUBE TOP SCH ×2 (09:16→21:04)
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
[2017-01-09] MEDS: oxyCODONE/ACETAMINOPHEN 5 MG/325 MG TAB PO PRN (13:33)
[2017-01-09 20:00] VITALS: BP 113/76; PULSE 99; RESP 20; TEMP 98.8; O2SAT 97
[2017-01-09] MEDS: FAMOTIDINE 20 MG TAB PO SCH (21:04)
[2017-01-10] MEDS: METHOCARBAMOL 500 MG TAB PO SCH ×3 (05:26→21:00)
[2017-01-10 08:30] VITALS: BP 105/78; PULSE 95; RESP 18; TEMP 96.8; O2SAT 99
[2017-01-10] MEDS: BACITRACIN TOP OINT 15 GM TUBE TOP SCH ×2 (09:15→20:52)
[2017-01-10] MEDS: METOPROLOL TARTRATE 25 MG TAB PO SCH ×2 (09:15→20:52)
[2017-01-10] MEDS: ENOXAPARIN SODIUM 40 MG/0.4 ML SYRINGE SQ SCH (10:58)
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
[2017-01-10 20:00] VITALS: BP 119/75; PULSE 98; RESP 20; TEMP 98; O2SAT 100
[2017-01-10] MEDS: FAMOTIDINE 20 MG TAB PO SCH (20:52)
[2017-01-10] MEDS: oxyCODONE/ACETAMINOPHEN 5 MG/325 MG TAB PO PRN (20:56)
[2017-01-11] MEDS: METHOCARBAMOL 500 MG TAB PO SCH ×3 (06:41→20:41)
[2017-01-11] MEDS: oxyCODONE/ACETAMINOPHEN 5 MG/325 MG TAB PO PRN ×3 (06:41→20:41)
[2017-01-11 08:00] VITALS: BP 129/81; PULSE 82; RESP 18; TEMP 96.8; O2SAT 99
[2017-01-11] MEDS: BACITRACIN TOP OINT 15 GM TUBE TOP SCH ×2 (09:00→20:46)
[2017-01-11] MEDS: METOPROLOL TARTRATE 25 MG TAB PO SCH ×2 (09:34→20:41)
[2017-01-11] MEDS: ENOXAPARIN SODIUM 40 MG/0.4 ML SYRINGE SQ SCH (09:35)
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
[2017-01-11 20:00] VITALS: BP 126/75; PULSE 85; RESP 20; TEMP 97.3; O2SAT 98
[2017-01-11] MEDS: FAMOTIDINE 20 MG TAB PO SCH (20:41)
[2017-01-12] MEDS: METHOCARBAMOL 500 MG TAB PO SCH ×3 (06:27→21:05)
[2017-01-12 08:00] VITALS: BP 126/73; PULSE 80; RESP 17; TEMP 97.8; O2SAT 99
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
[2017-01-12] MEDS: ENOXAPARIN SODIUM 40 MG/0.4 ML SYRINGE SQ SCH (10:18)
[2017-01-12] MEDS: METOPROLOL TARTRATE 25 MG TAB PO SCH ×2 (10:19→21:01)
[2017-01-12] MEDS: BACITRACIN TOP OINT 15 GM TUBE TOP SCH ×2 (10:22→21:03)
[2017-01-12 20:00] VITALS: BP 119/80; PULSE 83; RESP 16; TEMP 98.8; O2SAT 99
[2017-01-12] MEDS: FAMOTIDINE 20 MG TAB PO SCH (21:00)
[2017-01-13] MEDS: METHOCARBAMOL 500 MG TAB PO SCH ×3 (05:48→21:17)
[2017-01-13 08:47] VITALS: BP 119/76; PULSE 79; RESP 16; TEMP 97.8; O2SAT 99
[2017-01-13] MEDS: BACITRACIN TOP OINT 15 GM TUBE TOP SCH ×2 (09:00→20:19)
[2017-01-13] MEDS: METOPROLOL TARTRATE 25 MG TAB PO SCH ×2 (09:16→20:18)
[2017-01-13] MEDS: ENOXAPARIN SODIUM 40 MG/0.4 ML SYRINGE SQ SCH (09:16)
[2017-01-13] MEDS: oxyCODONE/ACETAMINOPHEN 5 MG/325 MG TAB PO PRN (09:23)
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
[2017-01-13 20:00] VITALS: BP 119/71; PULSE 84; RESP 16; TEMP 97.4; O2SAT 99
[2017-01-13] MEDS: FAMOTIDINE 20 MG TAB PO SCH (20:18)
[2017-01-14] MEDS: METHOCARBAMOL 500 MG TAB PO SCH ×3 (05:21→21:09)
[2017-01-14 08:00] VITALS: BP 130/78; PULSE 88; RESP 18; TEMP 98.1; O2SAT 97
[2017-01-14] MEDS: BACITRACIN TOP OINT 15 GM TUBE TOP SCH ×2 (09:00→21:11)
[2017-01-14] MEDS: ENOXAPARIN SODIUM 40 MG/0.4 ML SYRINGE SQ SCH (09:11)
[2017-01-14] MEDS: METOPROLOL TARTRATE 25 MG TAB PO SCH ×2 (09:11→21:09)
[2017-01-14] MEDS: oxyCODONE/ACETAMINOPHEN 5 MG/325 MG TAB PO PRN ×2 (09:11→21:09)
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
[2017-01-14 20:00] VITALS: BP 111/69; PULSE 75; RESP 21; TEMP 98.1; O2SAT 100
[2017-01-14] MEDS: FAMOTIDINE 20 MG TAB PO SCH (21:09)
[2017-01-15] MEDS: METHOCARBAMOL 500 MG TAB PO SCH ×3 (05:38→21:28)
[2017-01-15] MEDS: oxyCODONE/ACETAMINOPHEN 5 MG/325 MG TAB PO PRN (06:02)
[2017-01-15 08:00] VITALS: BP 111/74; PULSE 80; RESP 18; TEMP 97.3; O2SAT 97
[2017-01-15] MEDS: ENOXAPARIN SODIUM 40 MG/0.4 ML SYRINGE SQ SCH (08:38)
[2017-01-15] MEDS: METOPROLOL TARTRATE 25 MG TAB PO SCH ×2 (08:38→20:50)
[2017-01-15] MEDS: BACITRACIN TOP OINT 15 GM TUBE TOP SCH ×2 (08:40→20:50)
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
[2017-01-15 20:00] VITALS: BP 103/74; PULSE 77; RESP 19; TEMP 98; O2SAT 98
[2017-01-15] MEDS: FAMOTIDINE 20 MG TAB PO SCH (20:50)
[2017-01-16] MEDS: METHOCARBAMOL 500 MG TAB PO SCH ×3 (06:16→21:20)
[2017-01-16 08:00] VITALS: BP 125/75; PULSE 64; RESP 18; TEMP 97.6; O2SAT 100
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
[2017-01-16] MEDS: ENOXAPARIN SODIUM 40 MG/0.4 ML SYRINGE SQ SCH (10:16)
[2017-01-16] MEDS: METOPROLOL TARTRATE 25 MG TAB PO SCH ×2 (10:16→21:20)
[2017-01-16] MEDS: BACITRACIN TOP OINT 15 GM TUBE TOP SCH ×2 (10:17→21:20)
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
[2017-01-16 20:00] VITALS: BP 112/66; PULSE 75; RESP 19; TEMP 98.4; O2SAT 100
[2017-01-16] MEDS: FAMOTIDINE 20 MG TAB PO SCH (21:20)
[2017-01-17] MEDS: METHOCARBAMOL 500 MG TAB PO SCH ×3 (06:15→21:16)
[2017-01-17 08:24] VITALS: BP 115/72; PULSE 79; RESP 19; TEMP 96.8; O2SAT 98
[2017-01-17] MEDS: ENOXAPARIN SODIUM 40 MG/0.4 ML SYRINGE SQ SCH (09:36)
[2017-01-17] MEDS: METOPROLOL TARTRATE 25 MG TAB PO SCH ×2 (09:36→21:16)
[2017-01-17] MEDS: BACITRACIN TOP OINT 15 GM TUBE TOP SCH ×2 (09:37→21:16)
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
[2017-01-17 20:00] VITALS: BP 118/78; PULSE 90; RESP 20; TEMP 97.2; O2SAT 99
[2017-01-17] MEDS: FAMOTIDINE 20 MG TAB PO SCH (21:17)
[2017-01-18] MEDS: METHOCARBAMOL 500 MG TAB PO SCH ×3 (05:52→21:38)
[2017-01-18] MEDS: oxyCODONE/ACETAMINOPHEN 5 MG/325 MG TAB PO PRN (06:00)
[2017-01-18 08:00] VITALS: BP 124/81; PULSE 72; RESP 20; TEMP 97.3; O2SAT 97
[2017-01-18] MEDS: METOPROLOL TARTRATE 25 MG TAB PO SCH ×2 (09:00→21:38)
[2017-01-18] MEDS: ENOXAPARIN SODIUM 40 MG/0.4 ML SYRINGE SQ SCH (09:03)
[2017-01-18] MEDS: BACITRACIN TOP OINT 15 GM TUBE TOP SCH ×2 (09:05→21:00)
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
[2017-01-18 20:00] VITALS: BP 119/74; PULSE 86; RESP 18; TEMP 96.1; O2SAT 99
[2017-01-18] MEDS: FAMOTIDINE 20 MG TAB PO SCH (21:38)
[2017-01-19] MEDS: METHOCARBAMOL 500 MG TAB PO SCH ×3 (05:53→22:06)
[2017-01-19 08:00] VITALS: BP 117/80; PULSE 79; RESP 18; TEMP 97; O2SAT 99
[2017-01-19] MEDS: ENOXAPARIN SODIUM 40 MG/0.4 ML SYRINGE SQ SCH (09:07)
[2017-01-19] MEDS: METOPROLOL TARTRATE 25 MG TAB PO SCH ×2 (09:07→22:06)
[2017-01-19] MEDS: BACITRACIN TOP OINT 15 GM TUBE TOP SCH ×2 (09:08→22:07)
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
[2017-01-19 20:00] VITALS: BP 120/75; PULSE 76; RESP 19; TEMP 98.4; O2SAT 100
[2017-01-19] MEDS: FAMOTIDINE 20 MG TAB PO SCH (22:06)
[2017-01-19] MEDS: oxyCODONE/ACETAMINOPHEN 5 MG/325 MG TAB PO PRN (22:07)
[2017-01-20] MEDS: oxyCODONE/ACETAMINOPHEN 5 MG/325 MG TAB PO PRN (05:24)
[2017-01-20] MEDS: METHOCARBAMOL 500 MG TAB PO SCH ×3 (05:24→21:00)
[2017-01-20 08:00] VITALS: BP 111/68; PULSE 64; RESP 18; TEMP 97.5; O2SAT 100
[2017-01-20 09:29] LABS: HEMATOCRIT 36.3 % (39.0-51.0); MEAN CELL VOLUME 95.2 FL (80.0-100.0); MEAN CORPUSCULAR HEMOGLOBIN 32.5 PG (27.0-34.0); MEAN CORPUSCULAR HGB CONC 34.1 % (32.0-36.0); PLATELET COUNT 231 TH/MM3 (150-450); RED BLOOD COUNT 3.81 MIL/MM3 (4.50-5.90); RED CELL DISTRIBUTION WIDTH 13.1 % (11.6-17.2); REVIEW FLAG FINAL; WHITE BLOOD COUNT 4.8 TH/MM3 (4.0-11.0)
[2017-01-20] MEDS: ENOXAPARIN SODIUM 40 MG/0.4 ML SYRINGE SQ SCH (09:53)
[2017-01-20] MEDS: METOPROLOL TARTRATE 25 MG TAB PO SCH ×2 (09:53→21:00)
[2017-01-20] MEDS: BACITRACIN TOP OINT 15 GM TUBE TOP SCH ×2 (09:54→21:04)
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
[2017-01-20 20:00] VITALS: BP 113/71; PULSE 75; RESP 19; TEMP 97.6; O2SAT 98
[2017-01-20] MEDS: FAMOTIDINE 20 MG TAB PO SCH (21:01)
[2017-01-21] MEDS: METHOCARBAMOL 500 MG TAB PO SCH ×3 (06:26→21:02)
[2017-01-21] MEDS: oxyCODONE/ACETAMINOPHEN 5 MG/325 MG TAB PO PRN ×2 (06:27→21:02)
[2017-01-21] MEDS: METOPROLOL TARTRATE 25 MG TAB PO SCH ×2 (10:03→20:55)
[2017-01-21] MEDS: ENOXAPARIN SODIUM 40 MG/0.4 ML SYRINGE SQ SCH (10:04)
[2017-01-21] MEDS: BACITRACIN TOP OINT 15 GM TUBE TOP SCH ×2 (10:04→20:57)
[2017-01-21 10:17] VITALS: BP 131/79; PULSE 77; RESP 18; TEMP 97.2; O2SAT 97
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
--- NOTE | 2017-01-21 16:38 | PD.ORT.PN ---
Objective Vitals Vital Signs Date Time Temp Pulse Resp B/P Pulse Ox O2 Delivery O2 Flow Rate FiO2 01/21/17 10:17 97.2 77 18 131/79 97 01/20/17 20:00 97.6 75 19 113/71 98 I/O 01/20/17 01/20/17 01/20/17 01/21/17 01/21/17 01/21/17 07:00 15:00 23:00 07:00 15:00 23:00 Intake Total 360 ml 720 ml 240 ml Output Total 250 ml 400 ml 450 ml Balance 110 ml 320 ml -210 ml Intake Oral 360 ml 720 ml 240 ml Output Urine Total 250 ml 400 ml 450 ml # Voids 4 Result Diagram: 01/20/17 0853 Imaging Last [address] 12/31/16 0000 Signed Impressions: Service Date/Time: Saturday, December 31, 2016 04:27 - CONCLUSION: 1. Suboptimal study. The upper images demonstrate severe motion artifact and these portions of the brain are not evaluated. 2. No visualized hemorrhage or mass effect. 3. Stable left frontal bone fracture. Siva Germain MD Objective Remarks Last [address] 12/31/16 0000 Signed Impressions: Service Date/Time: Saturday, December 31, 2016 04:27 - CONCLUSION: 1. Suboptimal study. The upper images demonstrate severe motion artifact and these portions of the brain are not evaluated. 2. No visualized hemorrhage or mass effect. 3. Stable left frontal bone fracture. Siva Germain MD Knee X-Ray 12/30/16 0000 Signed Impressions: Service Date/Time: Friday, December 30, 2016 08:53 - CONCLUSION: 1. Mild osteoarthritis. 2. There is a joint effusion. No fracture seen however an occult fracture cannot be excluded. Amrik Kaplan MD Humerus X-Ray 12/30/16 0000 Signed Impressions: Service Date/Time: Friday, December 30, 2016 08:43 - CONCLUSION: No acute fracture. Amrik Kaplan MD Thoracic Spine CT 12/29/16 1636 Signed Impressions: Service Date/Time: Thursday, December 29, 2016 17:06 - CONCLUSION: Mild degenerative changes throughout the thoracic spine. No acute fracture or subluxation. Juan Diego Pulido MD Maxillofacial CT 12/29/16 1636 Signed Impressions: Service Date/Time: Thursday, December 29, 2016 16:56 - CONCLUSION: Acute fractures involving the superior orbital regan bilaterally, left zygoma, and right anterior and lateral maxillary sinus regan. Orbital emphysema is noted bilaterally. There is also hemorrhage filling the right maxillary sinus. Small fluid levels are noted within the sphenoid and frontal sinuses bilaterally. Juan Diego Pulido MD Lumbar Spine CT 12/29/[id number] Signed Impressions: Service Date/Time: Thursday, December 29, 2016 17:06 - CONCLUSION: 1. Bilateral sacral fractures extending from the superior to the inferior aspects of the sacrum. 2. No compression fracture, spondylolisthesis or spondylolysis of the lumbar spine. Juan Diego Pulido MD Head CT 12/29/161635 Signed Impressions: Service Date/Time: Thursday, December 29, 2016 16:56 - CONCLUSION: 1. No acute intracranial bleed. 2. Acute fractures involving the right maxillary sinus and left orbit which will be described in detail in the CT of the facial bones report done the same day. 3. Opacification of the right maxillary sinus with hemorrhage. Juan Diego Pulido MD Chest CT 12/29/161635 Signed Impressions: Service Date/Time: Thursday, December 29, 2016 17:06 - CONCLUSION: Posterior pleural/parenchymal patchiness is noted bilaterally (right slightly worse than left ) consistent with atelectasis, minimal infiltrates and/or contusions. Juan Diego Pulido MD Cervical Spine CT 12/29/161635 Signed Impressions: Service Date/Time: Thursday, December 29, 2016 16:56 - CONCLUSION: 1. No acute fracture or prevertebral soft-tissue swelling. 2. Diffuse cervical spondylosis and multilevel bilateral foraminal narrowing from C3 through T1. 3. Mild scoliosis of the cervical spine. 4. Patchiness within the right lung apex. Juan Diego Pulido MD Assessment & Plan Assessment and Plan [facility], consult on 12/30 Right shoulder contusion without fracture Left shoulder dislocation with closed reduction Left midshaft fibula fracture Multiple pelvic fractures (bilateral sacrum, bilateral superior/inferior pubic rami, bilateral acetabulum) Left knee contusion with moderate joint effusion PREVIOUS/CURRENT ORDERS: The patient should remain nonweightbearing with the LUE and should use his sling for support and comfort The patient will remain TTWB on the right LE secondary to his pelvic fractures. The patient can be WBAT on the LLE, however this may need to be limited secondary to his midshaft fibula fracture. The patient could require the use of a fracture boot if unable to tolerate WB on the LLE. This has not yet been determined. Please call me if need order for fx boot when patient attempts ambulation. NEW X-Rays ordered of the the left shoulder, left tibia, and pelvis including Judet views. We will review the x-rays as soon as they're completed to see if we can adjust management protocol. Alfred Alexander MD Jan 21, 2017 16:38
[2017-01-21 20:00] VITALS: BP 115/70; PULSE 76; RESP 16; TEMP 98.5; O2SAT 99
--- NOTE | 2017-01-21 20:43 | RADHPO ---
EXAM DATE/TIME: 01/21/2017 18:20 [facility] COMPARISON: CT HIP RIGHT W/O CONTRAST, December 29, 2016, 17:06. INDICATIONS : Right hip pain. MEDICAL HISTORY : None. SURGICAL HISTORY : None. ENCOUNTER: Initial ACUITY: 1 day PAIN SCORE: 3/10 LOCATION: Right hip FINDINGS: Comminuted, minimally to mildly displaced fractures of the right acetabulum and right superior and in ferior pubic rami are again noted, healing in unchanged alignment. There are also healing, nondisplaced fractures of the left superior and inferior pubic rami. Left bhaskar tabulum remains intact. CONCLUSION: Healing right acetabular and bilateral pubic rami fractures in unchanged alignment. Celestino Zhao MD on January 21, 2017 at 20:40 Board Certified Radiologist. This report was verified electronically.
--- NOTE | 2017-01-21 20:44 | RADHPO ---
EXAM DATE/TIME: 01/21/2017 18:22 [facility] COMPARISON: CT SHOULDER LEFT W/O CONTRAST, December 29, 2016, 17:06. INDICATIONS : Left shoulder pain. MEDICAL HISTORY : None. SURGICAL HISTORY : None. ENCOUNTER: Initial ACUITY: 1 day PAIN SCORE: 2/10 LOCATION: Left shoulder. FINDINGS: Multiple view examination of the left shoulder demonstrates no evidence of fracture or dislocation. The glenohumeral and acromioclavicular joints are maintained. There is normal range of motion betwee n internal and external rotation. Bony mineralization is normal. CONCLUSION: No fracture or subluxation of the left shoulder. Celestino Zhao MD on January 21, 2017 at 20:42 Board Certified Radiologist. This report was verified electronically.
--- NOTE | 2017-01-21 20:48 | RADHPO ---
EXAM DATE/TIME: 01/21/2017 19:53 [facility] COMPARISON: No previous studies available for comparison. INDICATIONS : Left leg pain. MEDICAL HISTORY : None. SURGICAL HISTORY : None. ENCOUNTER: Initial ACUITY: 1 day PAIN SCORE: 2/10 LOCATION: Left lower leg. FINDINGS: Subacute midshaft fracture of the left fibula is less distinct in the interim compatible with healing . Alignment is unchanged, near anatomic. No new fracture. Soft tissues within normal limits. CONCLUSION: Healing, nondisplaced midshaft fracture of the left fibula. Celestino Zhao MD on January 21, 2017 at 20:44 Board Certified Radiologist. This report was verified electronically.
[2017-01-21] MEDS: FAMOTIDINE 20 MG TAB PO SCH (20:55)
[2017-01-22] MEDS: METHOCARBAMOL 500 MG TAB PO SCH ×3 (06:12→21:37)
[2017-01-22] MEDS: oxyCODONE/ACETAMINOPHEN 5 MG/325 MG TAB PO PRN (06:15)
[2017-01-22 08:00] VITALS: BP 117/78; PULSE 70; RESP 18; TEMP 97.7; O2SAT 99
[2017-01-22] MEDS: METOPROLOL TARTRATE 25 MG TAB PO SCH ×2 (09:41→20:22)
[2017-01-22] MEDS: ENOXAPARIN SODIUM 40 MG/0.4 ML SYRINGE SQ SCH (09:42)
[2017-01-22] MEDS: BACITRACIN TOP OINT 15 GM TUBE TOP SCH ×2 (09:43→20:23)
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
--- NOTE | 2017-01-22 15:00 | RADHPO ---
EXAM DATE/TIME: 01/22/2017 14:14 [facility] COMPARISON: No previous studies available for comparison. INDICATIONS : Left wrist pain. MEDICAL HISTORY : None. SURGICAL HISTORY : None. ENCOUNTER: Initial ACUITY: 2 weeks PAIN SCORE: 7/10 LOCATION: Left wrist. FINDINGS: Three view examination of the left wrist demonstrates no soft tissue swelling, dislocation, or fractu re. The carpal bones are in normal alignment. The joint spaces are maintained. Bony mineralization is normal. CONCLUSION: Negative exam. Darrion Argueta MD on January 22, 2017 at 14:57 Board Certified Radiologist. This report was verified electronically.
[2017-01-22 20:00] VITALS: BP 115/69; PULSE 71; RESP 17; TEMP 97.6; O2SAT 98
[2017-01-22] MEDS: FAMOTIDINE 20 MG TAB PO SCH (20:22)
[2017-01-23] MEDS: METHOCARBAMOL 500 MG TAB PO SCH ×3 (05:52→21:31)
[2017-01-23] MEDS: ENOXAPARIN SODIUM 40 MG/0.4 ML SYRINGE SQ SCH (08:48)
[2017-01-23] MEDS: BACITRACIN TOP OINT 15 GM TUBE TOP SCH ×2 (08:49→20:27)
[2017-01-23] MEDS: METOPROLOL TARTRATE 25 MG TAB PO SCH ×2 (08:49→20:27)
[2017-01-23 08:52] VITALS: BP 129/71; PULSE 72; RESP 19; TEMP 97.3; O2SAT 98
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
[2017-01-23 20:00] VITALS: BP 140/86; PULSE 90; RESP 19; TEMP 96.8; O2SAT 100
[2017-01-23] MEDS: FAMOTIDINE 20 MG TAB PO SCH (20:27)
[2017-01-24] MEDS: METHOCARBAMOL 500 MG TAB PO SCH ×3 (05:45→21:45)
[2017-01-24 08:00] VITALS: BP 142/87; PULSE 80; RESP 18; TEMP 97.2; O2SAT 100
[2017-01-24] MEDS: ENOXAPARIN SODIUM 40 MG/0.4 ML SYRINGE SQ SCH (09:01)
[2017-01-24] MEDS: METOPROLOL TARTRATE 25 MG TAB PO SCH ×2 (09:01→20:13)
[2017-01-24] MEDS: BACITRACIN TOP OINT 15 GM TUBE TOP SCH ×2 (09:03→21:45)
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
[2017-01-24] MEDS: oxyCODONE/ACETAMINOPHEN 5 MG/325 MG TAB PO PRN (12:32)
--- NOTE | 2017-01-24 13:18 | PD.ORT.PN ---
Subjective Subjective Remarks Patient resting in bed in NAD. Patient reports he has little to no pain recently to the LLE and mild pain to the right LE. Patient states his biggest c /o pain is with the left shoulder. Patient states he still wears a sling intermittently for support and comport. Patient notes being able to ambulate with a walker and admits placing more weight on the RLE than instructed. Patient denies any hip or pelvic pain with sitting and only mild pain with ambulation. Patient denies tingling/numbness, fevers or chills. Objective Vitals Vital Signs Date Time Temp Pulse Resp B/P Pulse Ox O2 Delivery O2 Flow Rate FiO2 01/24/17 08:00 97.2 80 18 142/87 100 01/23/17 20:00 96.8 90 19 140/86 100 I/O 01/23/17 01/23/17 01/23/17 01/24/17 01/24/17 01/24/17 07:00 15:00 23:00 07:00 15:00 23:00 Intake Total 480 ml 1320 ml 640 ml Output Total 400 ml 250 ml Balance 80 ml 1320 ml 390 ml Intake Oral 480 ml 1320 ml 640 ml Output Urine Total 400 ml 250 ml # Voids 6 # Bowel Movements 0 1 Result Diagram: 01/20/17 0853 Imaging Last [address] 12/31/16 0000 Signed Impressions: Service Date/Time: Saturday, December 31, 2016 04:27 - CONCLUSION: 1. Suboptimal study. The upper images demonstrate severe motion artifact and these portions of the brain are not evaluated. 2. No visualized hemorrhage or mass effect. 3. Stable left frontal bone fracture. Siva Germain MD Objective Remarks Patient has good AROM/PROM of the bilateral hips, knees, and ankles. Patient has mild discomfort with IR/ER of the right hip. Patient has full AROM of the left shoulder however overhead activity is painful. Patient has some moderate LUE weakness and mild BLE weakness. 2+ pedal and radial pulses bilaterally. Patient has well healed scars on his left lower leg. Minimal swelling to the bilateral LEs and no swelling to the left shoulder. Patient able to transfer out of bed independently and ambulate unassisted. Patient is wearing sling to the LUE. Patient is A&OX3. XR of left fibula fracture (2 views taken on 01/21/2017) reads as Nondisplaced midshaft fibula fracture with signs of calus. XR of the left shoulder (2 views taken on 01/21/2017) reads as no fracture or subluxation of the shoulder. XR of the pelvis (AP with 2 Judet views taken on 01/21/2017) reads as healing right acetabular and bilateral pubic rami fractures. I reviewed all the above images and agree with the radiologists interpretation. Assessment & Plan Assessment and Plan [facility], consult on 12/30 Right shoulder contusion without fracture Left shoulder dislocation with closed reduction Left midshaft fibula fracture Multiple pelvic fractures (bilateral sacrum, bilateral superior/inferior pubic rami, right acetabulum) Left knee contusion with moderate joint effusion PREVIOUS/CURRENT ORDERS: The patient can be weightbearing as tolerated with the LUE and should gradually transition from his sling as tolerated. Patient should avoid ER. PT for LUE to include AROM/PROM and gentle strengthening The patient will remain TTWB on the right LE secondary to his pelvic fractures. I reviewed this and demonstrated this today as he was placing more weight than TTWB over the RLE. PT for AROM/PROM and gentle strengthening. The patient can be WBAT on the LLE. I do not feel the patient requires a fracture boot at this time for his mid-shaft fibula fracture. The patient is clear for discharge home with home health once he is able to function independently and is medically cleared. The patient should f/u in the office with Dr. Alexander in 4 weeks for repeat XRs and management of above injuries. Mike Feliciano Jan 24, 2017 13:18
[2017-01-24 20:00] VITALS: BP 136/77; PULSE 79; RESP 16; TEMP 97.5; O2SAT 99
[2017-01-24] MEDS: FAMOTIDINE 20 MG TAB PO SCH (20:13)
[2017-01-25] MEDS: METHOCARBAMOL 500 MG TAB PO SCH ×3 (05:19→23:42)
[2017-01-25 08:00] VITALS: BP 118/80; PULSE 80; RESP 18; TEMP 97.8; O2SAT 95
[2017-01-25] MEDS: BACITRACIN TOP OINT 15 GM TUBE TOP SCH ×2 (09:00→23:44)
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
[2017-01-25] MEDS: ENOXAPARIN SODIUM 40 MG/0.4 ML SYRINGE SQ SCH (10:00)
[2017-01-25] MEDS: METOPROLOL TARTRATE 25 MG TAB PO SCH ×2 (10:01→23:42)
[2017-01-25] MEDS: oxyCODONE/ACETAMINOPHEN 5 MG/325 MG TAB PO PRN (10:10)
[2017-01-25 20:00] VITALS: BP 120/77; PULSE 86; RESP 19; TEMP 98; O2SAT 100
[2017-01-25] MEDS: FAMOTIDINE 20 MG TAB PO SCH (23:44)
[2017-01-26] MEDS: oxyCODONE/ACETAMINOPHEN 5 MG/325 MG TAB PO PRN ×3 (00:41→18:03)
[2017-01-26] MEDS: METHOCARBAMOL 500 MG TAB PO SCH ×3 (06:39→22:43)
[2017-01-26 08:00] VITALS: BP 120/90; PULSE 98; RESP 20; TEMP 97.4; O2SAT 97
[2017-01-26] MEDS: METOPROLOL TARTRATE 25 MG TAB PO SCH ×2 (08:03→21:01)
[2017-01-26] MEDS: BACITRACIN TOP OINT 15 GM TUBE TOP SCH ×2 (08:04→21:02)
[2017-01-26] MEDS: ENOXAPARIN SODIUM 40 MG/0.4 ML SYRINGE SQ SCH (09:29)
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
[2017-01-26 20:00] VITALS: BP 116/75; PULSE 85; RESP 20; TEMP 98; O2SAT 99
[2017-01-26] MEDS: FAMOTIDINE 20 MG TAB PO SCH (21:00)
[2017-01-27] MEDS: METHOCARBAMOL 500 MG TAB PO SCH ×3 (05:40→21:41)
[2017-01-27] MEDS: oxyCODONE/ACETAMINOPHEN 5 MG/325 MG TAB PO PRN ×2 (05:41→21:41)
[2017-01-27 08:00] VITALS: BP 131/75; PULSE 68; RESP 18; TEMP 97.3; O2SAT 96
[2017-01-27] MEDS: METOPROLOL TARTRATE 25 MG TAB PO SCH ×2 (09:06→20:33)
[2017-01-27] MEDS: BACITRACIN TOP OINT 15 GM TUBE TOP SCH ×2 (09:06→20:33)
[2017-01-27] MEDS: ENOXAPARIN SODIUM 40 MG/0.4 ML SYRINGE SQ SCH (09:06)
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
[2017-01-27 20:00] VITALS: BP 125/80; PULSE 89; RESP 16; TEMP 96.9; O2SAT 98
[2017-01-27] MEDS: FAMOTIDINE 20 MG TAB PO SCH (20:33)
[2017-01-28] MEDS: METHOCARBAMOL 500 MG TAB PO SCH ×3 (05:05→21:43)
[2017-01-28 08:42] VITALS: BP 138/79; PULSE 72; RESP 19; TEMP 97; O2SAT 99
[2017-01-28] MEDS: ENOXAPARIN SODIUM 40 MG/0.4 ML SYRINGE SQ SCH (09:51)
[2017-01-28] MEDS: BACITRACIN TOP OINT 15 GM TUBE TOP SCH ×2 (09:51→20:16)
[2017-01-28] MEDS: METOPROLOL TARTRATE 25 MG TAB PO SCH ×2 (09:51→20:14)
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
[2017-01-28 20:00] VITALS: BP 126/81; PULSE 92; RESP 19; TEMP 98.7; O2SAT 98
[2017-01-28] MEDS: FAMOTIDINE 20 MG TAB PO SCH (20:14)
[2017-01-29] MEDS: METHOCARBAMOL 500 MG TAB PO SCH ×2 (05:17→13:12)
[2017-01-29 08:00] VITALS: BP 125/80; PULSE 77; RESP 21; TEMP 98.3; O2SAT 98
[2017-01-29] MEDS: METOPROLOL TARTRATE 25 MG TAB PO SCH (08:33)
[2017-01-29] MEDS: ENOXAPARIN SODIUM 40 MG/0.4 ML SYRINGE SQ SCH (08:33)
[2017-01-29] MEDS: oxyCODONE/ACETAMINOPHEN 5 MG/325 MG TAB PO PRN (08:33)
[2017-01-29] MEDS: BACITRACIN TOP OINT 15 GM TUBE TOP SCH (08:34)
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
[2017-01-29 10:13] VITALS: RESP 14
[2017-01-29] MEDS ORDERED: METO25TA3 PO (11:10)
[2017-01-29] MEDS ORDERED: METH500T3 PO (11:10)
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
[2017-01-29] MEDS ORDERED: WALKER WHEELS/F1 MIS (11:25)
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
[2017-02-20] MEDS ORDERED: MULTTAB67 PO (08:44)
[2017-02-20] MEDS ORDERED: FISH1000 PO (08:44)
[2017-02-20] MEDS ORDERED: TH GCAP PO (08:44)
[2017-02-20] MEDS ORDERED: [UNRECOGNIZED DRUG - CODE] PO (08:44)
== END 2017-01-29 17:00 | disposition home or self-care (01) | DRG 551 ==
LOC: NEPI 16:28 → EDBD 17:05 → NEDA 17:05 → N03A 17:23 → N06A 12-31 21:11 → PH5A 01-03 22:45
PROVIDERS: ADMIT Family Medicine; ATTEND Family Medicine
PROC: 5A1945Z Respiratory Ventilation, 24-96 Consecutive Hours (ICD-10-PCS; principal; 2016-12-29)
PROC: 0RSKXZZ Reposition Left Shoulder Joint, External Approach (ICD-10-PCS; 2016-12-29)
DX: S32.10XA Unspecified fracture of sacrum, initial encounter for closed fracture (principal); S32.492A Other specified fracture of left acetabulum, initial encounter for closed fracture; D69.59 Other secondary thrombocytopenia; S02.40CA Maxillary fracture, right side, initial encounter for closed fracture; S32.491A Other specified fracture of right acetabulum, initial encounter for closed fracture; S02.40FA Zygomatic fracture, left side, initial encounter for closed fracture; S02.82XA Fracture of other specified skull and facial bones, left side, initial encounter for closed fracture; S06.0X9A Concussion with loss of consciousness of unspecified duration, initial encounter; S32.519A Fracture of superior rim of unspecified pubis, initial encounter for closed fracture; J98.11 Atelectasis; S32.512A Fracture of superior rim of left pubis, initial encounter for closed fracture; S32.511A Fracture of superior rim of right pubis, initial encounter for closed fracture; S02.81XA Fracture of other specified skull and facial bones, right side, initial encounter for closed fracture; S43.015A Anterior dislocation of left humerus, initial encounter; S82.832A Other fracture of upper and lower end of left fibula, initial encounter for closed fracture; S80.211A Abrasion, right knee, initial encounter; S80.02XA Contusion of left knee, initial encounter; S40.011A Contusion of right shoulder, initial encounter; R40.2432 Glasgow coma scale score 3-8, at arrival to emergency department; D64.9 Anemia, unspecified; H53.2 Diplopia; E61.1 Iron deficiency; H11.32 Conjunctival hemorrhage, left eye; M25.532 Pain in left wrist; V13.4XXA Pedal cycle driver injured in collision with car, pick-up truck or van in traffic accident, initial encounter; Y93.55 Activity, bike riding; Z91.19 Patient's noncompliance with other medical treatment and regimen
CPT/HCPCS: 23650; 70450; 70486; 71010; 71250; 72125; 72128; 72131; 72190; 73020; 73030; 73060; 73110; 73200; 73560; 73590; 73610; 73700; 74176; 74177; 80048; 80053; 80076; 82247; 82248; 82435; 82565; 82607; 82747; 82947; 83010; 83540; 83550; 83615; 84132; 84295; 84466; 84520; 85007; 85025; 85027; 85060; 85384; 85610; 85730; 86022; 86703; 86705; 86803; 86850; 86880; 86900; 86901; 87340; 94002; 94003; 94150; 96374; 96375; 99291; C9113; G0390; J0690; J1650; J1756; J2270; J2405; J3010; J7030; Q9967